=== PATIENT | female | born 1970 | race Caucasian/White ===

== ENCOUNTER 2023-02-17 15:08 | Emergency (ER) | payer BC, OTHER ==
[~2023-02-17] VITALS: Ht 152.4 cm; Wt 90.7 kg
[~2023-02-17 15:08] MED LIST: ATEN25TA2 PO; BENA10TA25 PO; METF-713 PO
[2023-02-17 15:12] VITALS: BP 149/81; PULSE 63; RESP 18; TEMP 97; O2SAT 99
[2023-02-17] MEDS ORDERED: IBUPROFEN 600 MG TAB PO ONE (15:50)
[2023-02-17] MEDS ORDERED: cefTRIAXone 1,000 MG in LIDOCAINE MPF 1% 2.1 ML IM ONE (16:00)
[2023-02-17] MEDS ORDERED: CEFP200T20 PO (16:04)
[2023-02-17] MEDS ORDERED: IBUP-2213 PO (16:04)
[2023-02-17] MEDS ORDERED: PYR100 PO (16:04)
--- NOTE | 2023-02-17 16:08 | NUR ---
52yo f presents w/diffuse suprapubic discomfort pain with urination and she is reporting diffuse lower back/buttock pain. PT states the pain is a cramping-like quality. Denies hematuria, n,v,d, fever, chills, dizziness. visual pain noted, pt pacing around, 10/10 pain. nad, safety maintained.
[2023-02-17] MEDS ORDERED: cefTRIAXone 1,000 MG VIAL ONE (16:10)
[2023-02-17] MEDS ORDERED: LIDOCAINE MPF 1% 5 ML ONE (16:11)
[2023-02-17 16:33] VITALS: BP 144/86; PULSE 78; RESP 14; TEMP 98.5; O2SAT 99
--- NOTE | 2023-02-17 16:33 | NUR ---
Patient discharged with v/s stable. Written and verbal after care instructions given and explained. Patient alert, oriented and verbalized understanding of instructions. Ambulatory with steady gait. All questions addressed prior to discharge. ID band removed. Patient advised to follow up with PMD. Rx of cepoodoxime proxetil, ibuprofen, phenazopyridene given. Opportunity to ask questions provided and answered.
--- NOTE | 2023-02-17 17:52 | NUR ---
The patient's care was reviewed and supervised by LISETH THAO RN.
== END 2023-02-17 16:33 | disposition home or self-care (01) ==
LOC: MED 15:08
DX: N39.0 Urinary tract infection, site not specified (principal); E11.9 Type 2 diabetes mellitus without complications; I10 Essential (primary) hypertension; Z79.4 Long term (current) use of insulin; Z79.899 Other long term (current) drug therapy; Z90.710 Acquired absence of both cervix and uterus
CPT/HCPCS: 81002; 87086; 96372; 99283; J0696; J2001